=== PATIENT | female | born 1995 | race African-American/Black ===

== ENCOUNTER 2024-08-07 14:47 | Emergency (ER) | payer MEDICAID, SELFPAY ==
[2024-08-07 14:56] VITALS: BP 134/94; PULSE 99; RESP 20; TEMP 36.8; O2SAT 100
--- NOTE | 2024-08-07 15:21 | ED.EXTPRO ---
HPI - Extremity Problem General Chief complaint: Extremity Problem,Nontraumatic Stated complaint: Right Shoulder Injury Time Seen by Provider: 08/07/24 15:08 Source: patient and RN notes reviewed Mode of arrival: ambulatory Limitations: no limitations History of Present Illness HPI Narrative: Patient presents today complaining of a one-week history of right shoulder pain. States she is unsure of any specific injury, but may have slept wrong on her arm. She describes the pain as a tightness which increases with movement. She had a previous injury years ago playing basketball but nothing acutely. Denies numbness or tingling. States she can still do some dance workouts at her job. She currently rates her pain 7/10 and has been using ice and Advil with mild relief. Related Data Allergies Allergy/AdvReac Type Severity Reaction Status Date / Time No Known Allergies Allergy Verified 08/07/24 15:01 Review of Systems Review of Systems: CONSTITUTIONAL: Denies body aches, fever, chills, or sweats. EYES: Denies visual changes, redness, or discharge. ENT: Denies rhinorrhea, congestion, sore throat, or otalgia. CARDIOVASCULAR: Denies chest pain, palpitations, or edema. RESPIRATORY: Denies cough or dyspnea. GASTROINTESTINAL: Denies abdominal pain, nausea, vomiting, or diarrhea. GENITOURINARY: Denies dysuria or hematuria. SKIN: Denies rash, itching, or wounds. MUSCULOSKELETAL: Right shoulder pain NEUROLOGIC: Denies headache, numbness, tingling, or weakness. PSYCH: Denies depression or anxiety. PMFSH Comments At time of signature, I have reviewed and agree with nursing past medical, surgical, social and family history unless otherwise noted. Please see nursing chart for further information. There is no relevant family history pertinent to the presenting complaint Exam Narrative: GENERAL: Well-appearing, well-nourished, and in no acute distress. HEAD: Normocephalic, atraumatic. EYES: EOMI. No redness or drainage. Conjunctivae normal. ENT: Mucous membranes pink and moist. NECK: Normal AROM. CHEST: No respiratory distress. EXTREMITIES: Right shoulder: Tenderness to the right cervical paraspinal muscles that extend to the right trapezius and lateral shoulder. Pain in the shoulder increases with AROM in all directions. Distal sensation intact. Capillary refill normal. Radial pulse normal. SKIN: Warm, dry, no rash. Capillary refill normal. Normal skin turgor. NEURO: No focal deficits. Alert and oriented x3. Gait steady. PSYCH: Normal affect. No signs of depression or anxiety. Course Course Level of Care: Express Care Visit Vital Signs Vital signs: Vital Signs Temperature 98.3 F 08/07/24 14:56 Pulse Rate 99 08/07/24 14:56 Respiratory Rate 20 08/07/24 14:56 Blood Pressure 134/94 H 08/07/24 14:56 Pulse Oximetry 100 08/07/24 14:56 Oxygen Delivery Room Air 08/07/24 14:56 Temperature 98.3 F 08/07/24 14:56 Pulse Rate 99 08/07/24 14:56 Respiratory Rate 20 08/07/24 14:56 Blood Pressure 134/94 H 08/07/24 14:56 Pulse Oximetry 100 08/07/24 14:56 Oxygen Delivery Room Air 08/07/24 14:56 Reviewed MDM - Extremity (Nontraumatic) MDM Narrative Medical decision making narrative: Patient will be treated for trapezius strain with diclofenac and Flexeril. Anticipatory guidance given. Differential Diagnosis Differential diagnosis: Likely other (Right shoulder strain, ligamentous injury, rotator cuff tendinitis, acquired torticollis) Critical Care Time Critical Care Time Critical Care Time: No Discharge Plan Discharge Clinical Impression: Strain of right trapezius muscle Qualifiers: Encounter type: initial encounter Qualified Code(s): S46.811A - Strain of other muscles, fascia and tendons at shoulder and upper arm level, right arm, initial encounter Patient Disposition: Home, Self-Care Condition: Stable Instructions: Muscle Strain (DC) Additional Instructions: Please take the diclofenac and Flexeril as directed. Use a heating pad to help relax your muscles. Do not drive within 8 hours of taking the Flexeril as it can make you drowsy. Follow-up with your PCP or orthopedics in 3-4 days if symptoms are not improving. Your blood pressure was elevated above 120/80 today at Urgent Care. This puts you above the threshold for follow up. Please schedule a followup visit with your personal physician as soon as possible, for further evaluation and treatment. Even blood pressure exceeding 120/80 may indicate pre-hypertension. Patient Language: Yoruba Prescriptions: New cyclobenzaprine 10 mg tablet 10 mg PO TID PRN (Reason: muscle spasm) Qty: 20 0RF diclofenac sodium 50 mg tablet,delayed release (DR/EC) 50 mg PO TID PRN (Reason: pain) Qty: 20 0RF Follow-up/Referrals: PHYSICIAN,CUSTOMS PORT DIRECTOR [Primary Care Provider] - Juliocesar Jones MD [Physician] - Stand Alone Forms: Work/School Release IP Time of Disposition: 15:27
== END 2024-08-07 15:32 | disposition home or self-care (01) ==
PROVIDERS: Emergency Provider Nurse Practitioner
DX: S46.811A Strain of other muscles, fascia and tendons at shoulder and upper arm level, right arm, initial encounter (principal); X58.XXXA Exposure to other specified factors, initial encounter
CPT/HCPCS: 99203; G0463

== ENCOUNTER 2024-08-19 11:34 | Emergency (ER) | payer MEDICAID, SELFPAY ==
[2024-08-19 11:43] VITALS: BP 133/93; PULSE 99; RESP 18; TEMP 36.9; O2SAT 100
--- NOTE | 2024-08-19 12:17 | ED_ITS ---
HPI - Extremity Injury (Upper) General Chief Complaint: Extremity Injury, Upper Stated Complaint: right shoulder pain Time Seen by Provider: 08/19/24 12:16 Source: patient, RN notes reviewed and old records reviewed Mode of arrival: ambulatory Limitations: no limitations History of Present Illness HPI narrative: Patient presents today complaining of right shoulder pain. She was seen here at [facility] on 08/07/2024 for same complaint. She was diagnosed with a right shoulder strain and placed on diclofenac and Flexeril. 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 She reports some intermittent tingling to the right fingertips. Related Data Allergies Allergy/AdvReac Type Severity Reaction Status Date / Time No Known Allergies Allergy Verified 08/19/24 11:52 Review of Systems Review of Systems: CONSTITUTIONAL: Denies body aches, fever, chills, or sweats. EYES: Denies visual changes, redness, or discharge. ENT: Denies rhinorrhea, congestion, sore throat, or otalgia. CARDIOVASCULAR: Denies chest pain, palpitations, or edema. RESPIRATORY: Denies cough or dyspnea. GASTROINTESTINAL: Denies abdominal pain, nausea, vomiting, or diarrhea. GENITOURINARY: Denies dysuria or hematuria. SKIN: Denies rash, itching, or wounds. MUSCULOSKELETAL: + right shoulder pain NEUROLOGIC: Denies headache, numbness, or weakness.+ tingling PSYCH: Denies depression or anxiety. PMFSH Comments At time of signature, I have reviewed and agree with nursing past medical, surgical, social and family history unless otherwise noted. Please see nursing chart for further information. There is no relevant family history pertinent to the presenting complaint Exam Narrative: GENERAL: Well-appearing, well-nourished, and in no acute distress. HEAD: Normocephalic, atraumatic. EYES: EOMI. No redness or drainage. Conjunctivae normal. ENT: Mucous membranes pink and moist. NECK: Normal AROM. CHEST: No respiratory distress. EXTREMITIES: Right shoulder: Tenderness to the anterior and posterior shoulder area/trapezius. No edema, ecchymosis, erythema noted. Decreased range of motion due to increased pain in all directions. Patient's forward flexion and abduction to 90? maximum due to pain and stiffness. Distal sensation intact. Capillary refill normal. Radial pulse normal. SKIN: Warm, dry, no rash. Capillary refill normal. Normal skin turgor. NEURO: No focal deficits. Alert and oriented x3. Gait steady. PSYCH: Normal affect. No signs of depression or anxiety. Course Course Level of Care: Express Care Visit Vital Signs Vital signs: Vital Signs Temperature 98.5 F 08/19/24 11:43 Pulse Rate 99 08/19/24 11:43 Respiratory Rate 18 08/19/24 11:43 Blood Pressure 133/93 H 08/19/24 11:43 Pulse Oximetry 100 08/19/24 11:43 Oxygen Delivery Room Air 08/19/24 11:43 Temperature 98.5 F 08/19/24 11:43 Pulse Rate 99 08/19/24 11:43 Respiratory Rate 18 08/19/24 11:43 Blood Pressure 133/93 H 08/19/24 11:43 Pulse Oximetry 100 08/19/24 11:43 Oxygen Delivery Room Air 08/19/24 11:43 Reviewed MDM - Extremity Injury (Upper) MDM Narrative Medical decision making narrative: Patient will be placed on prednisone to help with inflammation and discomfort. Again she has been recommended to follow-up with orthopedics for further eval uation. She may need to initiate care with a PCP before she can make an appointment with Orthopedics. She has been referred to both. Patient agrees with plan. Differential Diagnosis Differential diagnosis: Likely other (Shoulder strain, rotator cuff injury, ligamentous injury, tendon injury, adhesive capsulitis) Critical Care Time Critical Care Time Critical Care Time: No Discharge Plan Discharge Clinical Impression: Pain in right shoulder Qualifiers: Chronicity: unspecified Qualified Code(s): M25.511 - Pain in right shoulder Patient Disposition: Home, Self-Care Condition: Stable Instructions: Shoulder Pain (ED) Additional Instructions: Please take the prednisone as prescribed. Please call and schedule a follow up visit with either a PCP or orthopedics for further evaluation of your shoulder pain. Continue to do gentle range of motion with your shoulder so it does not become very stiff and frozen. You have been given contact information for both. The [facility] physician liaison number is [phone] to help you find a new PCP. Your blood pressure was elevated above 120/80 today at Urgent Care. This puts you above the threshold for follow up. Please schedule a followup visit with your personal physician as soon as possible, for further evaluation and treatment. Even blood pressure exceeding 120/80 may indicate pre-hypertension. Patient Language: Maltese Prescriptions: New prednisone 50 mg tablet 50 mg PO DAILY 5 Days Qty: 5 0RF No Action cyclobenzaprine 10 mg tablet 10 mg PO TID PRN (Reason: muscle spasm) Qty: 20 0RF diclofenac sodium 50 mg tablet,delayed release (DR/EC) 50 mg PO TID PRN (Reason: pain) Qty: 20 0RF Follow-up/Referrals: Perico Mcgill MD [Physician] - UNKNOWN,DOCTOR [Primary Care Provider] - Time of Disposition: 12:09
== END 2024-08-19 12:10 | disposition home or self-care (01) ==
PROVIDERS: Emergency Provider Nurse Practitioner
DX: M25.511 Pain in right shoulder (principal); Z79.899 Other long term (current) drug therapy
CPT/HCPCS: 99213; G0463